=== PATIENT | male | born 1955 | race Two or more races ===

== ENCOUNTER 2022-06-15 06:19 | Emergency (ER) | payer MEDICARE, MEDICAID ==
[2022-06-15 11:25] VITALS: BP 148/90
[2022-06-15] MEDS ORDERED: IBU600T PO (13:05)
== END 2022-06-15 13:25 | disposition home or self-care (01) ==
LOC: ER 06:19
DX: S01.81XA Laceration without foreign body of other part of head, initial encounter (principal); I10 Essential (primary) hypertension; Y08.89XA Assault by other specified means, initial encounter; Y93.89 Activity, other specified; Y92.89 Other specified places as the place of occurrence of the external cause; Y99.8 Other external cause status
CPT/HCPCS: 12013; 70450; 70486